=== PATIENT | female | born 1960 | race Two or more races ===

== ENCOUNTER 2017-12-04 14:19 | Emergency (ER) | payer MEDICAID ==
[~2017-12-04] VITALS: Ht 162.6 cm; Wt 68.0 kg
[2017-12-04 14:28] VITALS: BP 136/94
[2017-12-04 14:34] VITALS: BP 129/78
--- NOTE | 2017-12-04 14:35 | Emergency Room Report ---
History of Present Illness General Chief Complaint: General Complaint Source: Patient Present Illness HPI [id number] with history of fibromyalgia brought in by ambulance for palpitations, anxiety after eating half of marijuana edible for first time. Patient had never had marijuana previously. Has had fibromyalgia for years, was recommended to tryedibles. Patient took about an hour ago. EMS endorses initial heart rate was 150, down to 140 in transit. Current heart rate 114 ER. denies associated chest pain, shortness of breath, history of heart disease or arrhythmia. Feels "a little anxious" right now. Allergies: Coded Allergies: No Known Allergies (Unverified , 12/04/17) Patient History Past Medical History: other - fibromyalgia Past Surgical History: none Pertinent Family History: none Social History: Denies: smoking, alcohol use, drug use Now: No Immunizations: UTD Reviewed Nursing Documentation: PMH: Agreed, PSxH: Agreed Nursing Documentation-PMH Past Medical History: No History, Except For Review of Systems All Other Systems: negative except mentioned in HPI Physical Exam Vital Signs Date Time Temp Pulse Resp B/P (MAP) Pulse Ox O2 Delivery O2 Flow Rate FiO2 12/04/17 14:21 98.4 126 18 136/94 99 Room Air Sp02 EP Interpretation: reviewed, normal General Appearance: normal inspection, well appearing, no apparent distress, alert, GCS 15, non-toxic Head: normocephalic, atraumatic Eyes: bilateral eye PERRL, bilateral eye EOMI ENT: normal ENT inspection, hearing grossly normal, normal pharynx, no angioedema, normal voice, TMs + canals normal, uvula midline, moist mucus membranes Neck: normal inspection, full range of motion, supple, thyroid normal, no meningismus, no bony tend Respiratory: normal inspection, lungs clear, normal breath sounds, no rhonchi, no respiratory distress, no retraction, no accessory muscle use, no wheezing, speaking full sentences Cardiovascular #1: no edema, no JVD, normal capillary refill, tachycardia Gastrointestinal: normal inspection, normal bowel sounds, non tender, soft, no mass, no peritonitis, non-distended, no guarding, no hernia, no pulsatile mass Genitourinary: no CVA tenderness Musculoskeletal: normal inspection, back normal, normal range of motion, no calf tenderness, pelvis stable, Lucía's Sign negative Neurologic: normal inspection, alert, oriented x3, responsive, 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 Patient has no history of heart disease Rhythm strip shows sinus tachycardia to 114, ectopy or PVCs. Patient given low dose of oral Ativan with improvement advised to avoid marijuana edible's in the future ER course: Patient has remained stable during ED stay. Disposition: Patient is to be discharged to home. patient is instructed to follow up with their primary care doctor within 5 days. Strict return precautions discussed with patient such as fever, chills, worsening/severe pain, nausea, vomiting, which may indicate severe illness. Patient verbalizes understanding and agrees with plan. Please note that this Emergency Department Report was dictated using [employer] software, occasionally this can lead to erroneous entry secondary to interpretation by the dictation equipment EKG Diagnostic Results Rate: tachycardiac Rhythm: NSR ST Segments: no acute changes ASA given to the pt in ED: No Last Vital Signs Date Time Temp Pulse Resp B/P (MAP) Pulse Ox O2 Delivery O2 Flow Rate FiO2 12/04/17 14:28 98.4 18 136/94 99 Room Air 12/04/17 14:21 126 Status: improved Disposition: HOME, SELF-CARE SIMEON PEDRAZA M.D. Dec 04, 2017 14:35
[2017-12-04] MEDS: LORazepam 0.5mg tab ORAL ONE (14:36)
[2017-12-04 15:18] VITALS: BP 119/78
[2017-12-04] MEDS: LR 1000ml 1,000 ML IV SCH (16:32)
[2017-12-04 17:35] VITALS: BP 111/71
[2017-12-04 17:36] VITALS: BP 111/71
== END 2017-12-04 17:36 | disposition home or self-care (01) ==
LOC: EDBD 14:19 → EMR 14:39
DX: R00.2 Palpitations (principal); T40.7X5A Adverse effect of cannabis (derivatives), initial encounter
CPT/HCPCS: 96360; 99284